=== PATIENT | female | born 1960 | race Caucasian/White ===

== ENCOUNTER → 2017-03-23 | Outpatient (CLI) | payer BC ==
[~2017-03-23] MED LIST: ASTN; CALC600T9 PO; CETI10TA84 PO; ESCI1TAB6 PO; FLAX12003 PO; MONT1TAB5 PO; MULTCAP42 PO; OMEGCAP2 PO; ZNTT/150 PO
--- NOTE | 2017-03-23 11:43 | DIAGNOSTIC IMAGING REPORT ---
SOFT TISSUE NECK CLINICAL HISTORY: ENLARGED THYROID, PAINFUL SWALLOWING COMPARISON STUDY: No previous studies for comparison. FINDINGS: The retropharyngeal soft tissues appear normal. There is a scoliosis. No colonic abnormalities are evident. IMPRESSION: No significant abnormalities of the soft tissue neck are visualized. Electronically signed by: Duncan García M.D. 03/23/2017 11:41 AM Dictated Date/Time: 03/23/2017 11:40 AM
[2017-03-23 14:59] LABS: THYROID STIMULATING HORMONE 0.274 uIu/ml (0.300-4.500)
== END | disposition home or self-care (01) ==
LOC: C.RADBC 11:19
PROVIDERS: ATTEND Physician Assistant
DX: E01.0 Iodine-deficiency related diffuse (endemic) goiter (principal); R13.10 Dysphagia, unspecified

== ENCOUNTER → 2017-03-24 | Outpatient (CLI) | payer BC ==
--- NOTE | 2017-03-24 11:45 | DIAGNOSTIC IMAGING REPORT ---
THYROID ULTRASOUND CLINICAL HISTORY: Painful swallowing. COMPARISON STUDY: None. TECHNIQUE: Sonography of the thyroid gland was performed. FINDINGS: The right thyroid lobe measures 5.9 x 1.8 x 1.7 cm and the left lobe measures 6.1 x 1.8 x 2.1 cm. The gland is mildly heterogeneous. There are multiple small thyroid nodules within each thyroid lobe. The largest is a 1.2 x 0.7 x 0.9 cm hypoechoic nodule within the upper pole of the left lobe. This contains echogenic foci which could reflect colloid or calcifications. The majority of the lesions are cystic. There is a partially calcified 7 mm left lobe nodule. IMPRESSION: 1. Mildly enlarged, heterogeneous thyroid gland. 2. Multiple small thyroid nodules, none of which meet criteria for biopsy. Electronically signed by: Sohail Owens M.D. 03/24/2017 11:44 AM Dictated Date/Time: 03/24/2017 11:41 AM
== END | disposition home or self-care (01) ==
LOC: C.ULTRBC 10:54
PROVIDERS: ATTEND Physician Assistant
DX: R13.10 Dysphagia, unspecified (principal); E04.2 Nontoxic multinodular goiter

== ENCOUNTER → 2017-06-22 | Outpatient (CLI) | payer BC ==
--- NOTE | 2017-06-22 12:43 | MAMMOGRAPHY REPORT ---
BILATERAL DIGITAL SCREENING MAMMOGRAM TOMOSYNTHESIS WITH CAD: 06/22/2017 CLINICAL HISTORY: Routine screening. TECHNIQUE: Breast tomosynthesis in addition to standard 2D mammography was performed. Current study was also evaluated with a Computer Aided Detection (CAD) system. COMPARISON: Comparison is made to exams dated: 06/07/2016 mammogram, 02/05/2015 mammogram, 12/19/2013 ma mmogram, 12/06/2012 mammogram, 11/29/2011 mammogram, and 11/25/2010 mammogram - [facility] nter. BREAST COMPOSITION: There are scattered areas of fibroglandular density in both breasts. FINDINGS: There are minimal vascular calcifications in the breasts. A stable grouping of punctate m icrocode calcifications in the right upper outer quadrant is unchanged dating back to at least 2007, therefore likely benign. No new suspicious mass, architectural distortion or cluster of microc alcifications is seen. IMPRESSION: ACR BI-RADS CATEGORY 1: NEGATIVE There is no mammographic evidence of malignancy. A 1 year screening mammogram is recommended. The pa tient will receive written notification of the results. Approximately 10% of breast cancers are not detected with mammography. A negative mammographic report should not delay biopsy if a clinically suggestive mass is present. Mary Kay Jin M.D. ay/:06/22/2017 12:18:09 Radiology Clerk: Harinder MONTANA(R)(M), [facility] letter sent: Normal 1/2 BI-RADS Code: ACR BI-RADS Category 1: Negative
== END | disposition home or self-care (01) ==
LOC: C.MAMM 11:39
PROVIDERS: ATTEND Obstetrics & Gynecology
DX: Z12.31 Encounter for screening mammogram for malignant neoplasm of breast (principal)

== ENCOUNTER → 2017-07-14 | Outpatient (CLI) | payer BC ==
[2017-07-14 11:23] LABS: ALT/SGPT 139 U/L (12-78); BLOOD UREA NITROGEN 21 mg/dl (7-18); BUN/CREATININE RATIO 21.2 (10-20); CALCIUM 9.5 mg/dl (8.5-10.1); CARBON DIOXIDE 26 mmol/L (21-32); CHLORIDE 106 mmol/L (98-107); CHOLESTEROL 224 mg/dl (0-200); GLUCOSE 102 mg/dl (70-99); POTASSIUM 4.4 mmol/L (3.5-5.1); SODIUM 138 mmol/L (136-145); TRIGLYCERIDES 193 mg/dl (0-150); VERY LOW DENSITY LIPOPROT CALC 39 mg/dl
[2017-07-14 11:26] LABS: HEMATOCRIT 39.7 % (37-47); MEAN CELL VOLUME 91.9 fL (80-100); MEAN CORPUSCULAR HEMOGLOBIN 30.6 pg (25-34); MEAN CORPUSCULAR HGB CONC 33.2 g/dl (32-36); MEAN PLATELET VOLUME 11.2 fL (7.4-10.4); PLATELET COUNT 225 K/uL (130-400); RED BLOOD COUNT 4.32 M/uL (4.2-5.4); WHITE BLOOD COUNT 6.18 K/uL (4.8-10.8)
[2017-07-14 11:28] LABS: BASO % 0.5 %; BASO ABS # 0.03 K/uL (0-0.2); COMPLETE YES; EOS % 1.8 %; HYPERSEGMENTED POLYS 1+; IG% 0.5 %; LYMPH % 26.9 %; LYMPH ABS # 1.66 K/uL (1.2-3.4); MONO % 10.7 %; NEUT % 59.6 %
[2017-07-14 11:31] LABS: ALKALINE PHOSPHATASE 100 U/L (45-117); AST/SGOT 72 U/L (15-37); CHOLESTEROL/HDL RATIO 6.4; HDL CHOLESTEROL 35 mg/dl; LDL CHOLESTEROL CALCULATED 150 mg/dl; THYROID STIMULATING HORMONE 0.362 uIu/ml (0.300-4.500)
[2017-07-14 12:26] LABS: ESTIMATED AVERAGE GLUCOSE 128 mg/dl; HA1C FLAG Normal (Normal)
== END | disposition home or self-care (01) ==
LOC: C.LABBC 08:46
PROVIDERS: ATTEND Internal Medicine
DX: E78.5 Hyperlipidemia, unspecified (principal); K21.9 Gastro-esophageal reflux disease without esophagitis; E01.0 Iodine-deficiency related diffuse (endemic) goiter; K76.0 Fatty (change of) liver, not elsewhere classified; R03.0 Elevated blood-pressure reading, without diagnosis of hypertension; R74.8 Abnormal levels of other serum enzymes